=== PATIENT | female | born 2000 | race Caucasian/White ===

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

== ENCOUNTER 2024-05-28 13:32 | Emergency (ER) | payer OTHER ==
[~2024-05-28] VITALS: Ht 167.6 cm; Wt 136.4 kg
[2024-05-28 13:41] VITALS: BP 136/84; PULSE 74; RESP 20; TEMP 98.6; O2SAT 100
== END 2024-05-28 14:33 | disposition home or self-care (01) ==
LOC: EMS 13:34
DX: S60.511A Abrasion of right hand, initial encounter (principal); F41.0 Panic disorder [episodic paroxysmal anxiety]; Z91.410 Personal history of adult physical and sexual abuse; Y04.8XXA Assault by other bodily force, initial encounter; Y93.89 Activity, other specified; Y92.89 Other specified places as the place of occurrence of the external cause; Y99.8 Other external cause status
CPT/HCPCS: 99283; Z7502